=== PATIENT | female | born 2000 | race Caucasian/White ===

== ENCOUNTER 2023-05-01 15:41 | Outpatient (CLI) | payer BC, SELFPAY | END 2023-05-01 15:42 | disposition home or self-care (01) | LOC: LKVREF 15:44 | PROVIDERS: PCP Emergency Medicine; Visit Provider Emergency Medicine | DX: Z00.00 Encounter for general adult medical examination without abnormal findings (principal); K62.5 Hemorrhage of anus and rectum | CPT/HCPCS: 82728 ==

== ENCOUNTER 2023-05-22 09:06 | Outpatient (CLI) | payer BC, SELFPAY ==
--- NOTE | 2023-05-22 07:18 | W.ANESCHARGE ---
Anesthesia Charges Start Date/Time Anesthesia Start Date: 05/22/23 Anesthesia Start Time: 10:00 Stop Date/Time Anesthesia Stop Date: 05/22/23 Anesthesia Stop Time: 10:25
[2023-05-22 09:24] LABS: Ur HCG Qualitative* Negative (Negative)
--- NOTE | 2023-05-22 10:28 | W.ANESCHARGE ---
Anesthesia Charges Start Date/Time Anesthesia Start Date: 05/22/23 Anesthesia Start Time: 10:00 Stop Date/Time Anesthesia Stop Date: 05/22/23 Anesthesia Stop Time: 10:00
== END 2023-05-22 09:07 | disposition home or self-care (01) ==
LOC: OP CLINIC 09:07
PROVIDERS: PCP Emergency Medicine; Visit Provider Internal Medicine
DX: K62.5 Hemorrhage of anus and rectum (principal)
CPT/HCPCS: 00812; 45378; 81025; J2704

== ENCOUNTER 2023-09-20 10:19 | Outpatient (CLI) | payer BC, SELFPAY | END 2023-09-20 10:20 | disposition home or self-care (01) | PROVIDERS: PCP Emergency Medicine; Visit Provider Emergency Medicine | DX: R53.83 Other fatigue (principal) | CPT/HCPCS: 80053; 82607; 82728; 84443 ==

== ENCOUNTER 2024-06-06 08:34 | Outpatient (CLI) | payer BC, SELFPAY | END 2024-06-06 08:35 | disposition home or self-care (01) | LOC: NFLDREF 06-09 09:29 | PROVIDERS: PCP Emergency Medicine; Referring Provider Emergency Medicine; Visit Provider Emergency Medicine | DX: E78.5 Hyperlipidemia, unspecified (principal) | CPT/HCPCS: 80061 ==

== ENCOUNTER 2024-07-11 08:25 | Outpatient (CLI) | payer BC, SELFPAY | END 2024-07-11 08:26 | disposition home or self-care (01) | LOC: NFLDREF 07-13 06:26 | PROVIDERS: PCP Emergency Medicine; Referring Provider Emergency Medicine; Visit Provider Emergency Medicine | DX: Z71.1 Person with feared health complaint in whom no diagnosis is made (principal) | CPT/HCPCS: 86592; 86703; 86706; 86803; 87491; 87591 ==

== ENCOUNTER 2025-06-04 10:34 | Outpatient (CLI) | payer BC, SELFPAY ==
[2025-06-05 20:09] LABS: HPV Source Cervical
== END 2025-06-04 10:35 | disposition home or self-care (01) ==
PROVIDERS: PCP Emergency Medicine; Visit Provider Emergency Medicine
DX: Z12.4 Encounter for screening for malignant neoplasm of cervix (principal); Z11.3 Encounter for screening for infections with a predominantly sexual mode of transmission
CPT/HCPCS: 87491; 87591; 87624; 87625; 88141; 88142; 88175